=== PATIENT | male | born 1960 | race Caucasian/White ===

== ENCOUNTER 2017-01-27 08:04 | Emergency (ER) | payer OTHER ==
[~2017-01-27] VITALS: Ht 165.1 cm; Wt 66.9 kg
[~2017-01-27 08:04] MED LIST: LRT5 PO
[2017-01-27 08:08] VITALS: TEMP 36.5; Ht 165.1 cm; Wt 66.9 kg
--- NOTE | 2017-01-27 08:51 | DIAGNOSTIC IMAGING REPORT ---
R FOOT MIN 3 VIEWS ROUTINE CLINICAL HISTORY: RIGHT, EVAL FX COMPARISON: None. DISCUSSION: Findings of considerable degenerative change throughout. Considerable soft tissue edema about the fifth toe and associated metatarsal. No well-defined acute bony adenopathy. Moderate degenerative change first metatarsophalangeal joint. Considerable heel spur. Subtalar joint is intact. 3 to IMPRESSION: Soft tissue edema. Degenerative change. No acute process. The above report was generated using voice recognition software. It may contain grammatical, syntax or spelling errors. Electronically signed by: Julian Neal M.D. 01/27/2017 8:50 AM Dictated Date/Time: 01/27/2017 8:43 AM
--- NOTE | 2017-01-27 09:11 | EMERGENCY ROOM VISIT NOTE ---
ED Visit Note First contact with patient: 08:13 CHIEF COMPLAINT: Right foot injury at work this morning Patient is a 56-year-old white male who works as a combination welder for [employer] who presents emergency department for evaluation of a right foot injury that occurred about 7 hours ago while at work. He states that a heavy, roughly 10 foot piece of metal pipe broke loose from the support on the ceiling, following and landing across the top of the patient's right foot. He was wearing leather boots at the time, they were not reinforced with metal. He noted discomfort at the time of the injury, but continued to work. He went to medical several hours later, and took off his shoe and sock and noticed bruising in the top of his foot and in his fifth toe. He is able to bear weight, primarily on his heel. He did not take any medications, nor applied any ice. He rated his discomfort a 5/10. There is no laceration or bleeding noted. REVIEW OF SYSTEMS: Review of systems as per HPI. All other systems reviewed were negative. At least 6 systems reviewed. PMH: Electronic medical records are reviewed and summarized as above/below. See Problem List. SOCIAL HISTORY: Patient lives at home with his family. He is employed. Nonsmoker. PHYSICAL EXAM: Vital Signs: Reviewed Nurse's notes. GENERAL: Pleasant 56-year- old white male who is awake and alert and in no acute distress. MUSCULOSKELETAL : Examination of the right foot show circumferential swelling and ecchymosis involving the right fifth toe, extending to the fifth MTP joint. He also has slight swelling and bruising in the dorsum of the foot, over the second and third MTP joints, and bruising noted in the bottom of the third toe. He does not have any pain in the Lisfranc joint. No pain involving the first metatarsal , first MTP or the great toe. Skin is intact without laceration or abrasion. Range of motion is full. Ankle is nontender. Foot is neurovascularly intact. EMERGENCY DEPARTMENT COURSE: X-rays of the right foot were obtained, and there was no evidence for acute fracture. Soft tissue swelling was noted. Conservative care measures were discussed. Patient can resume normal activity as his symptoms allow. He can return to work without restrictions. Over-the- counter medications for discomfort. Differential diagnosis included fracture, contusion, dislocation, among others. Medication reconciliation: I attest that I have personally reviewed the patient' s current medication list. Blood pressure screening : Patient was found to have normal blood pressure on screening and does not require follow-up. R FOOT MIN 3 VIEWS ROUTINE CLINICAL HISTORY: RIGHT, EVAL FX COMPARISON: None. DISCUSSION: Findings of considerable degenerative change throughout. Considerable soft tissue edema about the fifth toe and associated metatarsal. No well-defined acute bony adenopathy. Moderate degenerative change first metatarsophalangeal joint. Considerable heel spur. Subtalar joint is intact. 3 to IMPRESSION: Soft tissue edema. Degenerative change. No acute process. Medication reconciliation: I attest that I have personally reviewed the patient' s current medication list. Blood pressure screening : Patient was found to have normal blood pressure on screening and does not require follow-up. Problem List Surgical Problems: (1) Status post ORIF of fracture of ankle Status: Resolved Current/Historical Medications No Active Prescriptions or Reported Meds Allergies Coded Allergies: No Known Allergies (Unverified , 01/27/17) Vital Signs Date Time Temp Pulse Resp B/P (MAP) Pulse Ox O2 Delivery O2 Flow Rate FiO2 01/27/17 09:16 71 16 118/74 94 01/27/17 09:11 71 16 118/74 94 Room Air 01/27/17 08:08 36.5 75 16 134/79 98 Room Air Departure Information Impression Primary Impression: Contusion of right foot Additional Impression: Work related injury Prescriptions No Active Prescriptions or Reported Meds Referrals Kalen Hammonds M.D. (PCP) Patient Instructions My [facility] Additional Instructions Ibuprofen(Motrin, Advil) may be used for fever or pain. Use 600mg every six hours as needed. Take with food. Avoid using more than 2400mg in a 24 hour period. Do not use 2400mg per day for more than three consecutive days without physician direction. Prolonged inappropriate use can lead to stomach upset or ulcers. This medication can be taken if you need to drive, work, or perform activities which may be dangerous when taking narcotic pain medication. (AND/OR) Acetaminophen(Tylenol) may be used for fever or pain. Use 1000mg every six hours as needed. Avoid using more than 3000mg in a 24 hour period. This medication can be taken if you need to drive, work, or perform activities which may be dangerous when taking narcotic pain medication. Ice compresses for 20 minutes at a time four times daily for 2-3 days. Elevate the foot for pain and swelling. Activity as tolerated. Continue current medications. Return to the ER immediately for any numbness, tingling, severe pain, extreme swelling in the extremity or as needed. Followup with your workers compensation physician/orthopedics if no improvement in 3-5 days. Problem Qualifiers Primary Impression: Contusion of right foot Encounter type: initial encounter Qualified Codes: S90.31XA - Contusion of right foot, initial encounter
[2017-01-27 09:16] VITALS: BP 118/74; PULSE 71; O2SAT 94
== END 2017-01-27 09:17 | disposition home or self-care (01) ==
LOC: C.EDB 08:06
DX: S90.31XA Contusion of right foot, initial encounter (principal); W20.8XXA Other cause of strike by thrown, projected or falling object, initial encounter; Y99.0 Civilian activity done for income or pay; Y92.149 Unspecified place in prison as the place of occurrence of the external cause; Y93.89 Activity, other specified